=== PATIENT | male | born 1965 | race Two or more races ===

== ENCOUNTER 2021-08-25 18:41 | Inpatient (IN) | payer MEDICAID, OTHER ==
[~2021-08-25] VITALS: Ht 160 cm; Wt 83.6 kg
[2021-08-25 22:51] LABS: Basophils # (auto) 0.1 10 ^3/uL (0-0.2); Basophils % (auto) 0.5 % (0.0-2.0); Eosinophils # (auto) 0.1 10 ^3/uL (0-0.8); Eosinophils % (auto) 0.5 % (0.0-7.0); Hematocrit 50.1 % (41.0-53.0); Hemoglobin 16.9 g/dL (13.5-17.5); Lymphocytes # (auto) 2.1 10 ^3/uL (0.4-5.4); Lymphocytes % (auto) 15.6 % (10.0-50.0); Mean Corpuscular Hemoglobin 29.5 pg (28.0-32.0); Mean Corpuscular Hgb Conc. 33.7 g/dL (32.0-36.0); Mean Corpuscular Volume 87.7 fL (80.0-100.0); Monocytes % (auto) 7.6 % (0.0-12.0); Neutrophils # (auto) 10.1 10 ^3/uL (1.6-8.6); Neutrophils % (auto) 75.8 % (37.0-80.0); Nucleated Red Blood Cells % 0.3 %; Red Blood Cells 5.72 10^6/uL (4.5-5.90); Red Cell Distribution Width 13.8 % (11.8-14.3); White Blood Cell 13.3 10^3/uL (4.4-10.8)
[2021-08-25 23:02] LABS: Albumin 4.2 g/dL (3.4-5.0); Calcium 9.3 mg/dL (8.5-10.1); Potassium 4.2 mmol/L (3.5-5.1)
[2021-08-25 23:07] LABS: BUN/Creatinine Ratio 12.8; Bilirubin, Total 0.8 mg/dL (0.2-1.0); Total Protein 7.8 g/dL (6.4-8.2)
[2021-08-26] MEDS ORDERED: ONDANSETRON HCL 4 MG/2 ML VIAL IV ONE (03:15)
[2021-08-26] MEDS ORDERED: HYDROmorphone HCL 2 MG/ML VL IV ONE (03:15)
[2021-08-26] MEDS ORDERED: HYDROmorphone HCL 2 MG/ML VL ONE (03:21)
[2021-08-26] MEDS ORDERED: SODIUM CHLORIDE 0.9% 1,000 ML IV ONE (04:30)
[2021-08-26] MEDS ORDERED: ZOLPIDEM TARTRATE 5 MG TAB PO ONE (04:30)
[2021-08-26] MEDS ORDERED: MORPHINE SULFATE INJECTION 2 MG/ML SYRG IV PRN (04:45)
[2021-08-26] MEDS ORDERED: PANTOPRAZOLE 40 MG/10 ML VIAL INJ IV ONE (04:45)
[2021-08-26] MEDS ORDERED: NITROGLYCERIN 0.4 MG SL TAB SL PRN (04:45)
[2021-08-26] MEDS: cefTRIAXone 1GM/50ML D5W 50 ML IV SCH ×2 (05:34→10:00)
[2021-08-26] MEDS: HYDROmorphone HCL 2 MG/ML VL IV PRN ×3 (10:39→23:54)
[2021-08-26] MEDS: ONDANSETRON HCL 4 MG/2 ML VIAL IV PRN ×3 (10:40→23:55)
[2021-08-26] MEDS ORDERED: METO-289 PO (14:31)
[2021-08-26] MEDS ORDERED: ASPI1TAB20 PO (14:41)
[2021-08-26] MEDS ORDERED: METH-928 PO (14:41)
[2021-08-26] MEDS ORDERED: PRAV20TA3 PO (14:41)
[2021-08-26] MEDS: ENOXAPARIN SOD 40 MG/0.4 ML SYRINGE SC SCH (21:48)
[2021-08-26 22:00] VITALS: BP 122/87
[2021-08-26] MEDS ORDERED: BENA-30 PO (22:10)
[2021-08-26 23:05] VITALS: BP 122/87
[2021-08-27] MEDS: ZOLPIDEM TARTRATE 5 MG TAB PO PRN ×2 (02:10→22:05)
[2021-08-27 05:00] VITALS: BP 124/78
[2021-08-27 08:24] LABS: Basophils # (auto) 0.1 10 ^3/uL (0-0.2); Basophils % (auto) 0.6 % (0.0-2.0); Calcium 8.3 mg/dL (8.5-10.1); Eosinophils # (auto) 0.1 10 ^3/uL (0-0.8); Hematocrit 40.5 % (41.0-53.0); Hemoglobin 13.9 g/dL (13.5-17.5); Lymphocytes # (auto) 2.3 10 ^3/uL (0.4-5.4); Lymphocytes % (auto) 23.9 % (10.0-50.0); Mean Corpuscular Hemoglobin 29.9 pg (28.0-32.0); Mean Corpuscular Hgb Conc. 34.3 g/dL (32.0-36.0); Mean Corpuscular Volume 87.3 fL (80.0-100.0); Monocytes # (auto) 1.2 10 ^3/uL (0-1.3); Monocytes % (auto) 12.3 % (0.0-12.0); Neutrophils % (auto) 62.2 % (37.0-80.0); Nucleated Red Blood Cells % 0.2 %; Red Blood Cells 4.64 10^6/uL (4.5-5.90); Red Cell Distribution Width 13.6 % (11.8-14.3); White Blood Cell 9.6 10^3/uL (4.4-10.8)
[2021-08-27 08:30] LABS: Albumin 3.3 g/dL (3.4-5.0); BUN/Creatinine Ratio 15.2; Total Protein 6.6 g/dL (6.4-8.2)
[2021-08-27 08:58] VITALS: BP 139/82
[2021-08-27] MEDS: ASCORBIC ACID 1,000 MG TAB PO SCH (09:38)
[2021-08-27] MEDS: cefTRIAXone 1GM/50ML D5W 50 ML IV SCH (09:38)
[2021-08-27] MEDS: ZINC SULFATE 220mg CAP or TAB PO SCH (09:38)
[2021-08-27] MEDS: CHOLECALCIFEROL (VITD3) 2,000 UNIT CAP/TAB PO SCH (09:39)
[2021-08-27] MEDS: IVERMECTIN 3 MG TAB PO SCH (09:39)
[2021-08-27] MEDS: AZITHROMYCIN 500MG/ 250ML 250 ML IV SCH (09:40)
[2021-08-27] MEDS: ENOXAPARIN SOD 40 MG/0.4 ML SYRINGE SC SCH ×2 (09:49→22:05)
[2021-08-27 13:00] VITALS: BP 126/88
[2021-08-27] MEDS: HYDROmorphone HCL 2 MG/ML VL IV PRN (15:11)
[2021-08-27] MEDS: ONDANSETRON HCL 4 MG/2 ML VIAL IV PRN (15:45)
[2021-08-27 17:05] VITALS: BP 130/86
[2021-08-27 20:00] VITALS: BP 132/83
[2021-08-27 22:00] VITALS: BP 132/83
[2021-08-28] VITALS (7 sets, daily range): BP systolic 119–148; BP diastolic 83–99
[2021-08-28 07:56] LABS: Basophils # (auto) 0.1 10 ^3/uL (0-0.2); Basophils % (auto) 1.1 % (0.0-2.0); Eosinophils # (auto) 0.1 10 ^3/uL (0-0.8); Eosinophils % (auto) 1.2 % (0.0-7.0); Hematocrit 38.7 % (41.0-53.0); Hemoglobin 13.7 g/dL (13.5-17.5); Lymphocytes # (auto) 2.2 10 ^3/uL (0.4-5.4); Lymphocytes % (auto) 29.6 % (10.0-50.0); Mean Corpuscular Hemoglobin 30.3 pg (28.0-32.0); Mean Corpuscular Hgb Conc. 35.3 g/dL (32.0-36.0); Mean Corpuscular Volume 85.8 fL (80.0-100.0); Monocytes # (auto) 0.7 10 ^3/uL (0-1.3); Neutrophils # (auto) 4.3 10 ^3/uL (1.6-8.6); Neutrophils % (auto) 58.1 % (37.0-80.0); Nucleated Red Blood Cells % 0.2 %; Red Blood Cells 4.51 10^6/uL (4.5-5.90); Red Cell Distribution Width 13.5 % (11.8-14.3); White Blood Cell 7.3 10^3/uL (4.4-10.8)
[2021-08-28 09:08] LABS: BUN/Creatinine Ratio 14.7; Calcium 8.7 mg/dL (8.5-10.1)
[2021-08-28] MEDS: IVERMECTIN 3 MG TAB PO SCH (09:49)
[2021-08-28] MEDS: ZINC SULFATE 220mg CAP or TAB PO SCH (09:49)
[2021-08-28] MEDS: CHOLECALCIFEROL (VITD3) 2,000 UNIT CAP/TAB PO SCH (09:49)
[2021-08-28] MEDS: cefTRIAXone 1GM/50ML D5W 50 ML IV SCH (09:49)
[2021-08-28] MEDS: ASCORBIC ACID 1,000 MG TAB PO SCH (09:49)
[2021-08-28] MEDS: ENOXAPARIN SOD 40 MG/0.4 ML SYRINGE SC SCH (09:50)
[2021-08-28] MEDS: AZITHROMYCIN 500MG/ 250ML 250 ML IV SCH (11:10)
[2021-08-28] MEDS ORDERED: LORazepam 0.5 MG TAB PO PRN (14:45)
[2021-08-28] MEDS: LACTULOSE 20Gm/30ML SOLN PO SCH (21:55)
[2021-08-28] MEDS: ATORVASTATIN 20 MG TAB PO SCH (21:56)
[2021-08-28] MEDS ORDERED: ATORVASTATIN 20 MG TAB PO SCH (22:00)
[2021-08-29] VITALS (7 sets, daily range): BP systolic 117–131; BP diastolic 84–95
[2021-08-29] MEDS: ZOLPIDEM TARTRATE 5 MG TAB PO PRN ×2 (00:10→21:51)
[2021-08-29] MEDS: cefTRIAXone 1GM/50ML D5W 50 ML IV SCH (09:47)
[2021-08-29] MEDS: AZITHROMYCIN 500MG/ 250ML 250 ML IV SCH (09:48)
[2021-08-29] MEDS: LACTULOSE 20Gm/30ML SOLN PO SCH ×3 (09:51→21:50)
[2021-08-29] MEDS: ASCORBIC ACID 1,000 MG TAB PO SCH (09:51)
[2021-08-29] MEDS: BENAZEPRIL HCL 10 MG TAB PO SCH (09:51)
[2021-08-29] MEDS: IVERMECTIN 3 MG TAB PO SCH (09:51)
[2021-08-29] MEDS: METOPROLOL SUCCINATE XL 50 MG TAB PO SCH (09:51)
[2021-08-29] MEDS: CHOLECALCIFEROL (VITD3) 2,000 UNIT CAP/TAB PO SCH (09:52)
[2021-08-29] MEDS: ZINC SULFATE 220mg CAP or TAB PO SCH (09:52)
[2021-08-29] MEDS ORDERED: BENAZEPRIL HCL 10 MG TAB PO SCH (10:00)
[2021-08-29] MEDS ORDERED: METOPROLOL SUCCINATE XL 50 MG TAB PO SCH (10:00)
[2021-08-29 12:06] LABS: INR 0.99 (0.9-1.15); Partial Thromboplastin Time 27.9 sec (23.6-33.0)
[2021-08-29] MEDS ORDERED: MORPHINE SULFATE 4 MG/ML SYR/VIAL IV PRN (16:00)
[2021-08-29] MEDS ORDERED: MIDAZOLAM HCL 2MG/2ML 2ml VIAL (1mg/ml) IV PRN (16:00)
[2021-08-29] MEDS ORDERED: LABETALOL HCL 5 MG/ML 4ML SYRINGE IV PRN (16:00)
[2021-08-29] MEDS ORDERED: ONDANSETRON HCL 4 MG/2 ML VIAL IV PRN (16:00)
[2021-08-29] MEDS ORDERED: ePHEDrine SULFATE 50 MG/ML AMP IV PRN (16:00)
[2021-08-29] MEDS ORDERED: HYDROmorphone HCL 2 MG/ML VL IV PRN (16:00)
[2021-08-29] MEDS ORDERED: MIDAZOLAM HCL 2MG/2ML 2ml VIAL (1mg/ml) ONE ×2 (16:16→16:20)
[2021-08-29] MEDS ORDERED: MEPERIDINE HCL (50 MG/ML) 1 ML VIAL ONE (16:16)
[2021-08-29] MEDS ORDERED: fentaNYL CITRATE 100 MCG/2 ML VL ONE (16:16)
[2021-08-29] MEDS ORDERED: TETRACAINE 1% INJ 2 ML VIAL IJ ONE (16:17)
[2021-08-29] MEDS ORDERED: PROPOFOL 10 MG/ML 20 ML IV ONE (16:19)
[2021-08-29] MEDS ORDERED: DexAMETHasone SOD PHOS 10MG/1ML VIAL INJ ONE (16:19)
[2021-08-29] MEDS: ATORVASTATIN 20 MG TAB PO SCH (21:51)
[2021-08-30 05:00] VITALS: BP 125/86
[2021-08-30] MEDS: HYDROcodone-ACET 5/325MG TAB PO PRN ×2 (06:20→14:16)
[2021-08-30 08:16] LABS: Basophils # (auto) 0 10 ^3/uL (0-0.2); Eosinophils # (auto) 0 10 ^3/uL (0-0.8); Hematocrit 41.5 % (41.0-53.0); Hemoglobin 14.1 g/dL (13.5-17.5); Lymphocytes % (auto) 10.9 % (10.0-50.0); Mean Corpuscular Hemoglobin 29.4 pg (28.0-32.0); Mean Corpuscular Hgb Conc. 33.9 g/dL (32.0-36.0); Mean Corpuscular Volume 86.7 fL (80.0-100.0); Monocytes # (auto) 0.5 10 ^3/uL (0-1.3); Monocytes % (auto) 5.4 % (0.0-12.0); Neutrophils # (auto) 7.9 10 ^3/uL (1.6-8.6); Neutrophils % (auto) 83.7 % (37.0-80.0); Nucleated Red Blood Cells % 0.2 %; Red Blood Cells 4.78 10^6/uL (4.5-5.90); Red Cell Distribution Width 13.4 % (11.8-14.3); White Blood Cell 9.5 10^3/uL (4.4-10.8)
[2021-08-30 08:26] LABS: Potassium 4.3 mmol/L (3.5-5.1)
[2021-08-30 08:44] LABS: Albumin 3.3 g/dL (3.4-5.0); Bilirubin, Total 0.7 mg/dL (0.2-1.0); Calcium 8.9 mg/dL (8.5-10.1); Total Protein 6.9 g/dL (6.4-8.2)
[2021-08-30 09:00] VITALS: BP 129/75
[2021-08-30] MEDS: cefTRIAXone 1GM/50ML D5W 50 ML IV SCH (09:18)
[2021-08-30] MEDS: ASCORBIC ACID 1,000 MG TAB PO SCH (10:04)
[2021-08-30] MEDS: AZITHROMYCIN 500MG/ 250ML 250 ML IV SCH (10:04)
[2021-08-30] MEDS: ZINC SULFATE 220mg CAP or TAB PO SCH (10:07)
[2021-08-30] MEDS: IVERMECTIN 3 MG TAB PO SCH (10:08)
[2021-08-30] MEDS: CHOLECALCIFEROL (VITD3) 2,000 UNIT CAP/TAB PO SCH (10:09)
[2021-08-30] MEDS: LACTULOSE 20Gm/30ML SOLN PO SCH ×2 (10:09→21:47)
[2021-08-30] MEDS: METOPROLOL SUCCINATE XL 50 MG TAB PO SCH (10:09)
[2021-08-30] MEDS: BENAZEPRIL HCL 10 MG TAB PO SCH (10:10)
[2021-08-30 13:00] VITALS: BP 124/84
[2021-08-30 17:00] VITALS: BP 125/84
[2021-08-30] MEDS ORDERED: FLEET ENEMA(ADULT) 135 ML PR ONE (17:15)
[2021-08-30] MEDS: BISACODYL 10 MG RECT SUPP PR PRN (18:02)
[2021-08-30 20:00] VITALS: BP 129/74
[2021-08-30] MEDS: ATORVASTATIN 20 MG TAB PO SCH (21:47)
[2021-08-30 22:00] VITALS: BP 129/74
[2021-08-30] MEDS: ONDANSETRON HCL 4 MG/2 ML VIAL IV PRN (22:13)
[2021-08-30] MEDS: ZOLPIDEM TARTRATE 5 MG TAB PO PRN (23:45)
[2021-08-31 05:00] VITALS: BP 116/71
[2021-08-31 08:20] LABS: Basophils # (auto) 0 10 ^3/uL (0-0.2); Basophils % (auto) 0.4 % (0.0-2.0); Eosinophils # (auto) 0.1 10 ^3/uL (0-0.8); Eosinophils % (auto) 0.9 % (0.0-7.0); Hematocrit 41.4 % (41.0-53.0); Mean Corpuscular Hemoglobin 29.7 pg (28.0-32.0); Mean Corpuscular Hgb Conc. 33.7 g/dL (32.0-36.0); Mean Corpuscular Volume 88.1 fL (80.0-100.0); Monocytes # (auto) 0.8 10 ^3/uL (0-1.3); Monocytes % (auto) 6.5 % (0.0-12.0); Neutrophils # (auto) 7.8 10 ^3/uL (1.6-8.6); Neutrophils % (auto) 66.2 % (37.0-80.0); Nucleated Red Blood Cells % 0.1 %; Red Cell Distribution Width 13.5 % (11.8-14.3); White Blood Cell 11.7 10^3/uL (4.4-10.8)
[2021-08-31 08:40] LABS: Potassium 4.2 mmol/L (3.5-5.1)
[2021-08-31 09:00] VITALS: BP 128/82
[2021-08-31] MEDS: LACTULOSE 20Gm/30ML SOLN PO SCH (09:00)
[2021-08-31] MEDS: cefTRIAXone 1GM/50ML D5W 50 ML IV SCH (09:00)
[2021-08-31] MEDS: IVERMECTIN 3 MG TAB PO SCH (09:00)
[2021-08-31] MEDS: ZINC SULFATE 220mg CAP or TAB PO SCH (09:00)
[2021-08-31] MEDS: ASCORBIC ACID 1,000 MG TAB PO SCH (09:01)
[2021-08-31] MEDS: CHOLECALCIFEROL (VITD3) 2,000 UNIT CAP/TAB PO SCH (09:01)
[2021-08-31] MEDS: BENAZEPRIL HCL 10 MG TAB PO SCH (09:01)
[2021-08-31] MEDS: AZITHROMYCIN 500MG/ 250ML 250 ML IV SCH (09:01)
[2021-08-31] MEDS: METOPROLOL SUCCINATE XL 50 MG TAB PO SCH (09:02)
[2021-08-31] MEDS: BISACODYL 10 MG RECT SUPP PR PRN (09:07)
[2021-08-31 09:10] LABS: BUN/Creatinine Ratio 16.8; Calcium 8.7 mg/dL (8.5-10.1)
[2021-08-31 13:00] VITALS: BP 124/70
[2021-08-31] MEDS ORDERED: ASCO10003 PO (13:38)
[2021-08-31] MEDS ORDERED: CHOL1CAP47 PO (13:38)
[2021-08-31 14:23] VITALS: BP 124/40
== END 2021-08-31 16:12 | disposition home or self-care (01) | DRG 713 ==
LOC: ER 18:42 → WEST WING 08-26 00:50 → ER 08-26 00:50 → OVERFLOW 08-26 04:37 → WEST WING 08-26 21:25
PROVIDERS: ADMIT Nurse Practitioner Family; ATTEND Internal Medicine Pulmonary Disease
PROC: 0VB08ZZ Excision of Prostate, Via Natural or Artificial Opening Endoscopic (ICD-10-PCS; 2021-08-29)
PROC: 0TCB8ZZ Extirpation of Matter from Bladder, Via Natural or Artificial Opening Endoscopic (ICD-10-PCS; 2021-08-29)
PROC: 0T5B8ZZ Destruction of Bladder, Via Natural or Artificial Opening Endoscopic (ICD-10-PCS; principal; 2021-08-29 16:04)
DX: N40.1 Benign prostatic hyperplasia with lower urinary tract symptoms (principal); U07.1 COVID-19; N13.8 Other obstructive and reflux uropathy; D62 Acute posthemorrhagic anemia; R31.0 Gross hematuria; F12.90 Cannabis use, unspecified, uncomplicated; F41.9 Anxiety disorder, unspecified; R33.8 Other retention of urine; I10 Essential (primary) hypertension; Z79.01 Long term (current) use of anticoagulants; Z79.82 Long term (current) use of aspirin; Z79.899 Other long term (current) drug therapy
CPT/HCPCS: 36415; 71045; 74176; 76705; 80048; 80053; 82728; 83615; 83735; 85025; 85610; 85730; 86141; 86850; 86900; 86901; 87426; 93005; 94760; C9113; G0378; J0696; J1100; J2250; J2405; J2704

== ENCOUNTER 2025-01-10 09:14 | Inpatient (IN) | payer OTHER ==
[~2025-01-10] VITALS: Ht 165.1 cm; Wt 92.1 kg
[~2025-01-10 09:14] MED LIST: ASCO10003 PO; ASPI1TAB20 PO; BENA-30 PO; CHOL1CAP47 PO; METH-928 PO; METO-289 PO; PRAV20TA3 PO
--- NOTE | 2025-01-10 09:40 | ED.PDOC ---
GI ASSESSMENT HPI Comments 59 year old male presents to the ED with a chief complaint of abdominal pain onset 4 days. Patient states he has been experiencing diffused abdominal pain radiating to bilateral flank for the past 4 days. Patient also states he noticed decrease in urine output, has been experiencing nausea. PMHx UTIs, HTN. Denies vomiting, diarrhea, constipation, chest pain shortness of breath, hematuria, hematemesis, fever, chills. No other symptoms or modifying factors present at this time. Chief Complaint: Abdominal Pain Time Seen by MD: 09:20 Primary Care Provider: WANG Borges Notes: Medications, Allergies Allergies: Coded Allergies: NO KNOWN ALLERGIES (Unverified , 08/25/21) Home Meds Active Scripts Cholecalciferol (Vitamin D3 Super Strength) 2,000 Unit Cap, 4000 UNIT PO DAILY for 30 Days, #30 CAP Prov:VICKIE AVERY MD 08/31/21 Ascorbic Acid (Gnp Vitamin C W/Cynthia Hips) 1,000 Mg Tab, 1000 MG PO DAILY for 30 Days, #30 TAB Prov:VICKIE AVERY MD 08/31/21 Reported Medications Benazepril HCl (Benazepril Hydrochloride) 20 Mg Tab, 20 MG PO BID, TAB 08/26/21 Methenamine Hippurate (Methenamine Hippurate) 1 Gm Tab, 1 GM PO BID, TAB 08/26/21 Aspirin (Aspir-81) 81 Mg Tab, 1 TAB PO DAILY, #30 TAB 5 Refills 08/26/21 Pravastatin Sodium (PRAVACHOL TABLET) 20 Mg Tb, 1 TAB PO QPM, #90 TAB 1 Refill 08/26/21 Metoprolol Succinate (Metoprolol Succinate Er) 50 Mg Tab, 50 MG PO BID, TAB 08/26/21 Information Source: Patient Mode of Arrival: Ambulatory Timing: Days Duration: Since onset Prehospital treatment: None Quality: Sharp Vomitus: None Severity: Moderate Recent: None Recent Hx of: None Pain Location: Diffuse Associated sign and symptoms: Nausea, Abdominal Pain Past Medical History PAST MEDICAL HISTORY: HTN, UTI'S Surgical History: Appendectomy Family History Family History: Reviewed,noncontributory to illness Social History Smoker: Cigar Alcohol: Denies ETOH Use Drugs: Denies Drug Use Lives In: Home Constitutional: denies: chills, diaphoresis, fatigue, fever, malaise, sweats, weakness, others EENTM: denies: blurred vision, double vision, ear bleeding, ear discharge, ear drainage, ear pain, ear ringing, eye pain, eye redness, hearing loss, mouth pain, mouth swelling, nasal discharge, nose bleeding, nose congestion, nose pain, photophobia, tearing, throat pain, throat swelling, voice changes, others Respiratory: denies: cough, hemoptysis, orthopnea, SOB at rest, shortness of breath, SOB with excertion, stridor, wheezing, others Cardiovascular: denies: chest pain, dizzy spells, diaphoresis, Dyspnea on exertion, edema, irregular heart beat, left arm pain, lightheadedness, palpitations, PND, syncope, others Gastrointestinal: reports: abdominal pain, nausea; denies: abdomen distended, blood streaked bowels, constipated, diarrhea, dysphagia, difficulty swallowing, hematemesis, melena, poor appetite, poor fluid intake, rectal bleeding, rectal pain, vomiting, others Genitourinary: reports: flank pain, others (decreased urine output); denies: burning, dysuria, frequency, hematuria, incontinence, penile discharge, penile sore, pain, testicle pain, testicle swelling, urgency Neurological: denies: dizziness, fainting, headache, left sided numbness, left sided weakness, numbness, paresthesia, pre-existing deficit, right sided numbness, right sided weakness, seizure, speech problems, tingling, tremors, weakness, others Musculoskeletal: denies: back pain, gout, joint pain, joint swelling, muscle pain, muscle stiffness, neck pain, others Integumetry: denies: bruises, change in color, change in hair/nails, dryness, laceration, lesions, lumps, rash, wounds, others Allergic/Immunocompromised: denies: Difficulty Healing, Frequent Infections, Hives, Itching, others Hematologic/Lymphatic: denies: anemia, blood clots, easy bleeding, easy bruising, swollen glands, others Endocrine: denies: excessive hunger, excessive sweating, excessive thirst, excessive urination, flushing, intolerance to cold, intolerance to heat, unexplained weight gain, unexplained weight loss, others Psychiatric: denies: anxiety, bipolar disorder, depression, hopeless, panic disorder, schizophrenia, sleepless, suicidal, others All Other Systems: Reviewed and Negative Physical Exam General Appearance: Moderate Distress, Normal HEENT: Normal ENT Inspection, Pharynx Normal, TMs Normal Neck: Full Range of Motion, Non-Tender, Normal, Normal Inspection Respiratory: Chest Non-Tender, Lungs Clear, No Accessory Muscle Use, No Respiratory Distress, Normal Breath Sounds Cardiovascular: No Edema, No JVD, No Murmur, No Gallop, Normal Peripheral Pulses, Regular Rate/Rhythm Breast Exam: Deferred Gastrointestinal: No Organomegaly, Non Tender, No Pulsatile Mass, Normal Bowel Sounds, Soft Genitalia: Deferred Pelvic: Deferred Rectal: Deferred Extremities: No calf tenderness, Normal capillary refill, Normal inspection, Normal range of motion, Non-tender, No pedal edema Musculoskeletal : Apperance: Normal Neurologic: Alert, health information manager II-XII nml as Tested, No Motor Deficits, Normal Affect, Normal Mood, No Sensory Deficits Cerebellar Function: Normal Reflexes: Normal Skin: Dry, Normal Color, Warm Peripheral Pulses: 3+ Radial (R), 3+ Radial (L) Lymphatic: No Adenopathy Was a procedure done? Was a procedure done?: No GI differential Dx Differential Diagnosis: Constipation, Diverticular disease, Esophagitis, Gastritis/PUD, Gastroenteritis X-Ray, Labs, Meds, VS Vital Signs Date Time Temp Pulse Resp B/P (MAP) Pulse Ox O2 Delivery O2 Flow Rate FiO2 01/10/25 12:39 98.6 86 18 98 98.6 01/10/25 10:12 80 16 95 Room Air 01/10/25 10:12 98.9 80 17 134/80 (98) 95 98.9 01/10/25 09:24 98.3 81 20 144/91 (108) 97 98.3 Lab Test 01/10/25 09:46 01/10/25 09:28 Range/Units White Blood Count 8.8 4.4-10.8 10^3/uL Red Blood Count 5.45 4.5-5.90 10^6/uL Hemoglobin 17.2 13.5-17.5 g/dL Hematocrit 49.4 41.0-53.0 % Mean Corpuscular Volume 90.6 80.0-100.0 fL Mean Corpuscular Hemoglobin 31.6 28.0-32.0 pg Mean Corpuscular Hemoglobin Concent 34.8 32.0-36.0 g/dL Red Cell Distribution Width 13.6 11.8-14.3 % Platelet Count 236 140-450 10^3/uL Mean Platelet Volume 8.3 6.9-10.8 fL Neutrophils (%) (Auto) 64.2 37.0-80.0 % Lymphocytes (%) (Auto) 23.9 10.0-50.0 % Monocytes (%) (Auto) 8.5 0.0-12.0 % Eosinophils (%) (Auto) 2.2 0.0-7.0 % Basophils (%) (Auto) 1.2 0.0-2.0 % Neutrophils # (Auto) 5.7 1.6-8.6 10 ^3/uL Lymphocytes # (Auto) 2.1 0.4-5.4 10 ^3/uL Monocytes # (Auto) 0.7 0-1.3 10 ^3/uL Eosinophils # (Auto) 0.2 0-0.8 10 ^3/uL Basophils # (Auto) 0.1 0-0.2 10 ^3/uL Nucleated Red Blood Cells 0.1 % Sodium Level 139 136-145 mmol/L Potassium Level 4.5 3.5-5.1 mmol/L Chloride Level 106 98-107 mmol/L Carbon Dioxide Level 23 20-31 mmol/L Anion Gap 10 5-15 Blood Urea Nitrogen 14 9-23 mg/dL Creatinine 1.17 0.700-1.30 mg/dL Glomerular Filtration Rate Calc 72 >90 mL/min BUN/Creatinine Ratio 12.0 10.0-20.0 Serum Glucose 120 H 74-106 mg/dL Calcium Level 10.7 H 8.7-10.4 mg/dL Urine Color Dark-yellow Yellow Urine Clarity Clear Clear Urine pH 6.0 5.0-9.0 Urine Specific [place] 1.010 1.001-1.035 Urine Protein Negative Negative Urine Ketones Negative Negative Urine Blood Negative Negative /uL Urine Nitrite 1+ H Negative Urine Bilirubin 1+ Negative Urine Urobilinogen 2 H Negative mg/dL Urine Leukocyte Esterase Negative Negative /uL Urine RBC <1 0 - 3 /hpf Urine Microscopic WBC < 1 0-3 /HPF Urine Squamous Epithelial Cells Few <5 /hpf Urine Bacteria None seen None Seen /hpf Urine Glucose Normal Normal mg/dL Patient alert. Complaining of abdominal discomfort. Vitals stable. Answering questions. Abdomen is soft. No sign of distress. Reviewed his history. Explained to the patient. Continue monitoring. Urinalysis shows UTI. Was given Rocephin. Establish intravenous access. Was given fluids. Time of 1ST Reevaluation: 09:50 Reevaluation 1ST: Unchanged Patient Education/Counseling: Diagnosis, Treatment, Prognosis Family Education/Counseling: No Family Present Departure 1 Departure Time of Disposition: 09:48 Impression: Primary Impression: Non-specific colitis Additional Impressions: HTN (hypertension) Qualified Codes: I10 - Essential (primary) hypertension Sepsis due to urinary tract infection Disposition: ADMITTED INPATIENT Admit to: Med Surg Condition: Guarded Critical Care Note Critical Care Time?: No Stability Stability form required: No Heart Score Heart Score: Heart Score Response (Comments) Value History N/A 0 EKG N/A 0 Age N/A 0 Risk Factors N/A 0 Troponin N/A 0 Total 0 I personally scribed for BURKE PARISH MD ([email or web address]) on 01/10/25 at 09:40. Electronically submitted by Kristin Cardenas ([email or web address]). BURKE PARISH MD Jan 10, 2025 09:40
[2025-01-10 09:53] LABS: Urine Bacteria None Seen /hpf (None Seen)
[2025-01-10 09:59] LABS: Basophils # (auto) 0.1 10 ^3/uL (0-0.2); Basophils % (auto) 1.2 % (0.0-2.0); Eosinophils # (auto) 0.2 10 ^3/uL (0-0.8); Eosinophils % (auto) 2.2 % (0.0-7.0); Hematocrit 49.4 % (41.0-53.0); Hemoglobin 17.2 g/dL (13.5-17.5); Lymphocytes # (auto) 2.1 10 ^3/uL (0.4-5.4); Lymphocytes % (auto) 23.9 % (10.0-50.0); Mean Corpuscular Hemoglobin 31.6 pg (28.0-32.0); Mean Corpuscular Hgb Conc. 34.8 g/dL (32.0-36.0); Mean Corpuscular Volume 90.6 fL (80.0-100.0); Monocytes # (auto) 0.7 10 ^3/uL (0-1.3); Monocytes % (auto) 8.5 % (0.0-12.0); Neutrophils # (auto) 5.7 10 ^3/uL (1.6-8.6); Neutrophils % (auto) 64.2 % (37.0-80.0); Nucleated Red Blood Cells % 0.1 %; Platelet Count (auto) 236 10^3/uL (140-450); Red Blood Cells 5.45 10^6/uL (4.5-5.90); Red Cell Distribution Width 13.6 % (11.8-14.3); White Blood Cell 8.8 10^3/uL (4.4-10.8)
[2025-01-10 10:03] LABS: Urine Blood Negative /uL (Negative); Urine Clarity Clear (Clear); Urine Color Dark-Yellow (Yellow); Urine Protein, UAD Negative (Negative); Urine Squamous Epithelial Cell FEW /hpf (<5); Urine Urobilinogen 2 mg/dL (Negative); Urine WBC < 1 /HPF (0-3)
[2025-01-10 10:07] LABS: Chloride 106 mmol/L (98-107); Potassium 4.5 mmol/L (3.5-5.1); Sodium 139 mmol/L (136-145)
[2025-01-10 10:08] LABS: Anion Gap 10 (5-15); Carbon Dioxide 23 mmol/L (20-31)
[2025-01-10 10:14] LABS: Blood Urea Nitrogen 14 mg/dL (9-23); Calcium 10.7 mg/dL (8.7-10.4); Glucose 120 mg/dL (74-106)
[2025-01-10] MEDS: SODIUM CHLORIDE 0.9% 1,000 ML IV ONE ×2 (13:00→15:21)
[2025-01-10] MEDS: cefTRIAXone 1GM/50ML D5W 50 ML IV ONE ×2 (13:00→15:22)
--- NOTE | 2025-01-10 13:44 | DVH ---
CT ABDOMEN AND PELVIS WITHOUT CONTRAST CLINICAL HISTORY: distended TECHNIQUE: Multiple contiguous axial images of the abdomen and pelvis without intravenous contrast. T he images were reformatted degenerate coronal and sagittal reconstructions. All CT scans at this medical facility are performed using dose modulation techniques as appropriate t o a performed exam including the following:Automated exposure control was utilized; adjustment of the MA and/or KV according to patient size; and use of iterative reconstruction technique. Radiation Dose Information: CT Dose: CTDI volume is 16.52 mGy. Dose-length product is 919.54 mGy*cm Comparison: CT ABD PELVIS WO CONTRAST on DOS: 08/26/21 FINDINGS: Evaluation of the abdomen and pelvis is limited without intravenous contrast. The liver is prominent in size with diffuse fatty infiltration. The gallbladder, pancreas, kidneys , adrenal glands, and spleen appear within normal limits. There is no gross evidence of abdominal lymphadenopathy. There is no free fluid or free air. The stomach grossly appears unremarkable. The small and large bowel loops demonstrate normal caliber and distribution. The appendix is not seen in the right lower quadrant abdomen. There are scattered diverticula in the distal colon without evidence of acute diverticulitis. The abdominal aorta and IVC appear within normal limits. The bladder appears unremarkable for the degree of distention. Pelvic organ appears within normal russell its. There is no gross evidence of a pelvic mass. There is no free fluid collection. Lung bases are clear. There is no acute osseous abnormality. IMPRESSION: 1. There is no acute process in the abdomen and pelvis. 2. Hepatomegaly with diffuse hepatic steatosis. 3. Distal colon diverticulosis. HS:Y
[2025-01-10] MEDS ORDERED: ACETAMINOPHEN 325 MG TAB PO PRN (14:00)
[2025-01-10] MEDS ORDERED: DOCUSATE SOD 100 MG CAP PO PRN (14:00)
[2025-01-10] MEDS: SODIUM CHLORIDE 0.9% 1,000 ML IV SCH (14:00)
[2025-01-10] MEDS ORDERED: ONDANSETRON HCL 4 MG/2 ML VIAL IV PRN (14:00)
--- NOTE | 2025-01-10 14:56 | DVHHP2 ---
History of Present Illness Reason for Visit: Acute abdominal pain History of Present Illness The patient is a 59-year-old male with past medical history of UTIs, hypertension, and appendicitis who presented to [facility] ED with complaint of abdominal pain for the past 4 days. Patient reports he has been experiencing diffuse abdominal pain, radiating to bilateral flank, decreased urine output, nausea, getting worse that prompted this visit. Patient was seen and evaluated in the ED, laboratory data shows WBC 8.8, platelets 236, sodium 139, potassium 4.5, BUN 14, creatinine 1.17, glucose 120, calcium 10.7, urinalysis positive for urinary tract infection, blood pressure 134/80, heart rate 86, temperature 98.6 F, O2 saturation 98% on room air. Abdomen/pelvis CT revealing hepatomegaly with diffuse hepatic steatosis, distal colon diverticulosis, no acute process in the abdomen and pelvis. Patient was started on IV antibiotic regimen Rocephin, please see medication orders section in the computer. On my assessment, patient denied chest pain, no headache, no dizziness, no shortness of breath, no nausea, no vomiting, no fever, no chills. Patient was admitted for further evaluation and medical management. Past Medical History Appendicitis, HTN, UTI'S Past Surgical History Appendectomy Family History Reviewed, noncontributory to the management of this case. Past Social History The patient lives at home, denies smoking, alcohol or illicit drugs abuse. Review of Systems Constitutional: No: Fever, Chills, Sweats, Weakness, Malaise, Other Eyes: No: Pain, Vision change, Conjunctivae inflammation, Eyelid inflammation, Other, Redness ENT: No: Ear pain, Ear discharge, Nose pain, Nose discharge, Nose congestion, Mouth pain, Mouth swelling, Throat pain, Throat swelling, Other Respiratory: No: Cough, Dry, Shortness of breath, SOB with excertion, Wheezing, Hemoptysis, Pleuritic Pain, Sputum, Wheezing, Other Cardiovascular: No: Chest Pain, Palpitations, Orthopnea, Paroxysmal Noc. Dyspnea, Edema, Lt Headedness, Other Gastrointestinal: Nausea, Abdominal Pain; No: Vomiting, Diarrhea, Constipation, Melena, Hematochezia, Other Genitourinary: No Dysuria, No Frequency, No Incontinence, No Hematuria, No Retention; Other (Bilateral flank pain, decreased urine output.) Musculoskeletal: No: other, neck pain, shoulder pain, arm pain, back pain, hand pain, leg pain, foot pain Skin: No: Rash, Lesions, Jaundice, Bruising, Other Neurological: No: Weakness, Numbness, Incoordination, Change in speech, Confusion, Seizures, Other Allergies: Coded Allergies: NO KNOWN ALLERGIES (Unverified , 08/25/21) Medications Current Medications Medications Dose Ordered Sig/Ramy Route Start Time Stop Time Status Last Admin Dose Admin Aspirin 81 mg DAILY PO 01/11/25 10:00 Metoprolol Tartrate 25 mg BID PO 01/10/25 22:00 Hydralazine HCl 10 mg Q6HP PRN IV 01/10/25 14:00 Benazepril HCl 20 mg DAILY PO 01/11/25 10:00 Ceftriaxone Sodium 50 ml @ 100 mls/hr DAILY@09 IV 01/11/25 09:00 Atorvastatin Calcium 20 mg HS PO 01/10/25 22:00 Sodium Chloride 1,000 ml @ 60 mls/hr [id number] IV 01/10/25 14:00 Acetaminophen/ Hydrocodone Bitart 1 tab Q4HP PRN PO 01/10/25 14:00 Ondansetron HCl 4 mg Q4HP PRN IV 01/10/25 14:00 Docusate Sodium 100 mg BIDPRN PRN PO 01/10/25 14:00 Acetaminophen 650 mg Q6HP PRN PO 01/10/25 14:00 Exam Vital Signs Vital Signs Date Time Temp Pulse Resp B/P (MAP) Pulse Ox O2 Delivery O2 Flow Rate FiO2 01/10/25 14:42 99.0 87 18 146/90 (108) 95 99.0 01/10/25 10:12 Room Air General Appearance: Alert, Oriented X3, Cooperative, No acute distress HEENT: Atraumatic, PERRLA, EOMI, Mucous membr. moist/pink Respiratory: Clear to auscultation, Normal air movement Cardiovascular: Regular rate, Normal S1, Normal S2, No murmurs Abdominal: Normal bowel sounds, Soft, No hepatospenomegaly, No masses, Other (Reports tenderness) Extremities: No clubbing, No cyanosis, No edema, Normal pulses, No tenderness/swelling Skin: No rashes, No breakdown, No significant lesion Neuro: Normal gait, Normal speech, Strength at 5/5 X4 ext, Normal tone, Sensation intact, Cranial nerves 3-12 NL, Reflexes 2+ Psych/Mental Status: Mental status NL, Mood NL Labs/Xrays Labs Test 01/10/25 09:46 01/10/25 09:28 Range/Units White Blood Count 8.8 4.4-10.8 10^3/uL Red Blood Count 5.45 4.5-5.90 10^6/uL Hemoglobin 17.2 13.5-17.5 g/dL Hematocrit 49.4 41.0-53.0 % Mean Corpuscular Volume 90.6 80.0-100.0 fL Mean Corpuscular Hemoglobin 31.6 28.0-32.0 pg Mean Corpuscular Hemoglobin Concent 34.8 32.0-36.0 g/dL Red Cell Distribution Width 13.6 11.8-14.3 % Platelet Count 236 140-450 10^3/uL Mean Platelet Volume 8.3 6.9-10.8 fL Neutrophils (%) (Auto) 64.2 37.0-80.0 % Lymphocytes (%) (Auto) 23.9 10.0-50.0 % Monocytes (%) (Auto) 8.5 0.0-12.0 % Eosinophils (%) (Auto) 2.2 0.0-7.0 % Basophils (%) (Auto) 1.2 0.0-2.0 % Neutrophils # (Auto) 5.7 1.6-8.6 10 ^3/uL Lymphocytes # (Auto) 2.1 0.4-5.4 10 ^3/uL Monocytes # (Auto) 0.7 0-1.3 10 ^3/uL Eosinophils # (Auto) 0.2 0-0.8 10 ^3/uL Basophils # (Auto) 0.1 0-0.2 10 ^3/uL Nucleated Red Blood Cells 0.1 % Sodium Level 139 136-145 mmol/L Potassium Level 4.5 3.5-5.1 mmol/L Chloride Level 106 98-107 mmol/L Carbon Dioxide Level 23 20-31 mmol/L Anion Gap 10 5-15 Blood Urea Nitrogen 14 9-23 mg/dL Creatinine 1.17 0.700-1.30 mg/dL Glomerular Filtration Rate Calc 72 >90 mL/min BUN/Creatinine Ratio 12.0 10.0-20.0 Serum Glucose 120 H 74-106 mg/dL Calcium Level 10.7 H 8.7-10.4 mg/dL Urine Color Dark-yellow Yellow Urine Clarity Clear Clear Urine pH 6.0 5.0-9.0 Urine Specific [place] 1.010 1.001-1.035 Urine Protein Negative Negative Urine Ketones Negative Negative Urine Blood Negative Negative /uL Urine Nitrite 1+ H Negative Urine Bilirubin 1+ Negative Urine Urobilinogen 2 H Negative mg/dL Urine Leukocyte Esterase Negative Negative /uL Urine RBC <1 0 - 3 /hpf Urine Microscopic WBC < 1 0-3 /HPF Urine Squamous Epithelial Cells Few <5 /hpf Urine Bacteria None seen None Seen /hpf Urine Glucose Normal Normal mg/dL PATIENT: ANDREY SIERRA ACCT: [id number] UNIT: [id number] : 1965 LOC: ER ROOM / BED: / AGE / SEX: 59 / M ADM STATUS: REG ER SERVICE [id number] ORDERING PHYSICIAN: BURKE APRISH MD PROCEDURE(s): ABPL - CT AB PEL WO CON-NO ORAL OR IV REASON: distended ORDER NUMBER(s): [id number], ACCESSION NUMBER(s): [id number] CT ABDOMEN AND PELVIS WITHOUT CONTRAST CLINICAL HISTORY: distended TECHNIQUE: Multiple contiguous axial images of the abdomen and pelvis without intravenous contrast. The images were reformatted degenerate coronal and sagittal reconstructions. All CT scans at this medical facility are performed using dose modulation techniques as appropriate to a performed exam including the following:Automated exposure control was utilized; adjustment of the MA and/or KV according to patient size; and use of iterative reconstruction technique. Radiation Dose Information: CT Dose: CTDI volume is 16.52 mGy. Dose-length product is 919.54 mGy*cm Comparison: CT ABD PELVIS WO CONTRAST on DOS: 08/26/21 FINDINGS: Evaluation of the abdomen and pelvis is limited without intravenous contrast. The liver is prominent in size with diffuse fatty infiltration. The gallbladder, pancreas, kidneys, adrenal glands, and spleen appear within normal limits. There is no gross evidence of abdominal lymphadenopathy. There is no free fluid or free air. The stomach grossly appears unremarkable. The small and large bowel loops demonstrate normal caliber and distribution. The appendix is not seen in the right lower quadrant abdomen. There are scattered diverticula in the distal colon without evidence of acute diverticulitis. The abdominal aorta and IVC appear within normal limits. The bladder appears unremarkable for the degree of distention. Pelvic organ appears within normal limits. There is no gross evidence of a pelvic mass. There is no free fluid collection. Lung bases are clear. There is no acute osseous abnormality. IMPRESSION: 1. There is no acute process in the abdomen and pelvis. 2. Hepatomegaly with diffuse hepatic steatosis. 3. Distal colon diverticulosis. Assessment/Plan Assessment/Plan Non-specific colitis Essential (primary) hypertension Urinary tract infection Acute abdominal pain Plan 1. Admit to med surge unit 2. Breathing treatment 3. Pain control management 4. IV antibiotic management 5. Management of fluids and electrolytes 6. Consultation for hospitalist 7. Diagnostic test abdomen/pelvis CT 8. DVT prophylaxis-on SCDs 9. Repeat labs CBC, CMP in a.m. 10. Home medication reviewed and reconciled 11. Continue with current medical management 12. Treatment plan discussed with patient and RN. Patient verbalized understanding. Plan discussed with: Patient, Other (RN) My Orders Orders - DANIELITO PINEDA DNP Procedure Category Date Status Time Aspirin Tablet PHA 01/11/25 In Process 10:00 Metoprolol Tartrate PHA 01/10/25 In Process Tablet (Lopressor Ta 22:00 Hydralazine Injection PHA 01/10/25 In Process (Apresoline Inject 14:00 Urine Bacterial ROBYN 01/10/25 In Process Culture 13:49 Benazepril Hcl Tablet PHA 01/11/25 In Process (Lotensin Tablet) 10:00 Ceftriaxone 1gm/50ml PHA 01/11/25 In Process D5w (Rocephin) 09:00 Atorvastatin (Lipitor) PHA 01/10/25 In Process 22:00 Allergies DEYA 01/10/25 In Process 13:49 Code Status CODE 01/10/25 Transmitted 13:49 Sodium Chloride 0.9% PHA 01/10/25 In Process 14:00 Oxygen Per Hour RT 01/10/25 Transmitted 13:49 Hydrocodone-Acet PHA 01/10/25 In Process 5/325mg Tab ([place] 14:00 Ondansetron Hcl PHA 01/10/25 In Process (Zofran) 14:00 Docusate Sodium PHA 01/10/25 In Process Capsule (Colace 14:00 Complete Blood Count LAB 01/11/25 Verified 04:00 Comprehensive LAB 01/11/25 Verified Metabolic Panel 04:00 Condition: Serious DEYA 01/10/25 In Process 13:49 Acetaminophen Tablet PHA 01/10/25 In Process (Tylenol Tablet) 14:00 Bedrest With Bathroom DEYA 01/10/25 In Process Privileg 13:49 Sequential DEYA 01/10/25 In Process Compression Device Admit ADMIT 01/10/25 Verified 14:54 Full Liq Diet DIET 01/10/25 Verified Dinner Nitroglycerin PHA 01/10/25 Verified Sublingual (Ntrostat 15:00 Problem List: (1) Non-specific colitis (2) Essential (primary) hypertension (3) Urinary tract infection (4) Acute abdominal pain Date of Service: Jan 10, 2025 Billing Provider: DANIELITO PINEDA DNP Common Visit Codes: 21798-WOSUINB INP/OBS CARE (MOD) DANIELITO PINEDA DNP Jan 10, 2025 14:56
[2025-01-10] MEDS ORDERED: MORPHINE SULFATE INJ 2 MG/ml SYRG IV PRN (15:00)
[2025-01-10] MEDS ORDERED: NITROGLYCERIN 0.4 MG SL TAB SL PRN (15:00)
[2025-01-10] MEDS: HYDROcodone-ACET 5/325MG TAB PO PRN (15:22)
[2025-01-10 16:28] VITALS: PULSE 74; RESP 18; O2SAT 97
[2025-01-10 17:30] VITALS: BP 162/96; PULSE 80; RESP 18; TEMP 98.4; O2SAT 94
[2025-01-10] MEDS ORDERED: FIN5T PO (18:29)
[2025-01-10] MEDS ORDERED: SIMV20TA20 PO (18:29)
[2025-01-10] MEDS ORDERED: METO-158 PO (18:29)
[2025-01-10] MEDS ORDERED: CIPR-214 PO (18:29)
[2025-01-10] MEDS ORDERED: CLIN1GEL24 TOP (18:29)
[2025-01-10] MEDS ORDERED: TAMS0.4C39 PO (18:29)
[2025-01-10] MEDS ORDERED: DICL500C76 PO (18:29)
[2025-01-10] MEDS ORDERED: PANT40T PO (18:29)
[2025-01-10] MEDS ORDERED: BENA-36 PO (18:29)
[2025-01-10 21:00] VITALS: BP 154/95; PULSE 82; RESP 18; TEMP 98.5; O2SAT 95
[2025-01-10] MEDS: ATORVASTATIN 20 MG TAB PO SCH (21:51)
[2025-01-10] MEDS: METOPROLOL TARTRATE 25 MG TAB PO SCH (21:52)
[2025-01-10] MEDS ORDERED: ZOLP10TA PO (21:56)
[2025-01-10] MEDS: TEMAZEPAM 15 MG CAP PO ONE (22:56)
[2025-01-11 01:00] VITALS: BP 132/81; PULSE 66; RESP 18; TEMP 98.1; O2SAT 95
[2025-01-11 05:20] VITALS: BP 172/102; PULSE 74; RESP 16; TEMP 98; O2SAT 96
[2025-01-11 05:37] VITALS: BP 161/95
[2025-01-11 08:03] LABS: Basophils # (auto) 0.1 10 ^3/uL (0-0.2); Basophils % (auto) 0.8 % (0.0-2.0); Eosinophils # (auto) 0.2 10 ^3/uL (0-0.8); Eosinophils % (auto) 2.6 % (0.0-7.0); Hematocrit 45.8 % (41.0-53.0); Hemoglobin 15.5 g/dL (13.5-17.5); Lymphocytes # (auto) 2.5 10 ^3/uL (0.4-5.4); Lymphocytes % (auto) 28.1 % (10.0-50.0); Mean Corpuscular Hemoglobin 30.8 pg (28.0-32.0); Mean Corpuscular Hgb Conc. 33.7 g/dL (32.0-36.0); Mean Corpuscular Volume 91.2 fL (80.0-100.0); Monocytes # (auto) 0.9 10 ^3/uL (0-1.3); Monocytes % (auto) 9.8 % (0.0-12.0); Neutrophils # (auto) 5.1 10 ^3/uL (1.6-8.6); Neutrophils % (auto) 58.7 % (37.0-80.0); Nucleated Red Blood Cells % 0.1 %; Platelet Count (auto) 212 10^3/uL (140-450); Red Blood Cells 5.03 10^6/uL (4.5-5.90); Red Cell Distribution Width 13.9 % (11.8-14.3); White Blood Cell 8.7 10^3/uL (4.4-10.8)
[2025-01-11 08:06] LABS: Albumin 4.6 g/dL (3.2-4.8); Alkaline Phosphatase 73 U/L (46-116); Anion Gap 8 (5-15); BUN/Creatinine Ratio 12.7 (10.0-20.0); Blood Urea Nitrogen 14 mg/dL (9-23); Calcium 10.1 mg/dL (8.7-10.4); Carbon Dioxide 27 mmol/L (20-31); Chloride 106 mmol/L (98-107); Potassium 4.5 mmol/L (3.5-5.1); Sodium 141 mmol/L (136-145); Total Protein 7.1 g/dL (5.7-8.2)
[2025-01-11 08:07] LABS: Alanine Aminotransferase 97 U/L (7-40); Aspartate Aminotransferase 44 U/L (13-40); Bilirubin, Total 1.5 mg/dL (0.2-1.0); Glucose 113 mg/dL (74-106)
[2025-01-11 08:30] VITALS: BP 135/93; PULSE 65; RESP 17; TEMP 97.8; O2SAT 97
[2025-01-11] MEDS: BENAZEPRIL HCL 10 MG TAB PO SCH (10:51)
[2025-01-11] MEDS: ASPirin 81 mg TAB PO SCH (10:51)
[2025-01-11] MEDS: cefTRIAXone 1GM/50ML D5W 50 ML IV SCH (10:52)
[2025-01-11 12:25] VITALS: BP 170/92; PULSE 71; RESP 18; TEMP 98.1; O2SAT 95
[2025-01-11] MEDS: TAMSULOSIN HYDROCHLORIDE 0.4 MG CAP PO ONE (12:39)
[2025-01-11] MEDS: FINASTERIDE 5 MG TAB PO ONE (12:39)
[2025-01-11] MEDS: hydrALAZINE HCL 20 MG/ML VL IV PRN (12:40)
[2025-01-11 16:20] VITALS: BP 143/89; PULSE 87; RESP 17; TEMP 98.5; O2SAT 95
--- NOTE | 2025-01-11 17:34 | DVHDS2 ---
Discharge Summary Date of Admission Jan 10, 2025 at 14:54 Date of Discharge: Jan 11, 2025 Labs/Diagnostic Data: Laboratory Results Test 01/11/25 07:23 01/10/25 09:28 White Blood Count 8.7 10^3/uL (4.4-10.8) Red Blood Count 5.03 10^6/uL (4.5-5.90) Hemoglobin 15.5 g/dL (13.5-17.5) Hematocrit 45.8 % (41.0-53.0) Mean Corpuscular Volume 91.2 fL (80.0-100.0) Mean Corpuscular Hemoglobin 30.8 pg (28.0-32.0) Mean Corpuscular Hemoglobin Concent 33.7 g/dL (32.0-36.0) Red Cell Distribution Width 13.9 % (11.8-14.3) Platelet Count 212 10^3/uL (140-450) Mean Platelet Volume 8.4 fL (6.9-10.8) Neutrophils (%) (Auto) 58.7 % (37.0-80.0) Lymphocytes (%) (Auto) 28.1 % (10.0-50.0) Monocytes (%) (Auto) 9.8 % (0.0-12.0) Eosinophils (%) (Auto) 2.6 % (0.0-7.0) Basophils (%) (Auto) 0.8 % (0.0-2.0) Neutrophils # (Auto) 5.1 10 ^3/uL (1.6-8.6) Lymphocytes # (Auto) 2.5 10 ^3/uL (0.4-5.4) Monocytes # (Auto) 0.9 10 ^3/uL (0-1.3) Eosinophils # (Auto) 0.2 10 ^3/uL (0-0.8) Basophils # (Auto) 0.1 10 ^3/uL (0-0.2) Nucleated Red Blood Cells 0.1 % Sodium Level 141 mmol/L (136-145) Potassium Level 4.5 mmol/L (3.5-5.1) Chloride Level 106 mmol/L (98-107) Carbon Dioxide Level 27 mmol/L (20-31) Anion Gap 8 (5-15) Blood Urea Nitrogen 14 mg/dL (9-23) Creatinine 1.10 mg/dL (0.700-1.30) Glomerular Filtration Rate Calc 77 mL/min (>90) BUN/Creatinine Ratio 12.7 (10.0-20.0) Serum Glucose 113 mg/dL (74-106) Calcium Level 10.1 mg/dL (8.7-10.4) Total Bilirubin 1.5 mg/dL (0.2-1.0) Aspartate Amino Transferase (AST) 44 U/L (13-40) Alanine Aminotransferase (ALT) 97 U/L (7-40) Alkaline Phosphatase 73 U/L (46-116) Total Protein 7.1 g/dL (5.7-8.2) Albumin 4.6 g/dL (3.2-4.8) Urine Color Dark-yellow (Yellow) Urine Clarity Clear (Clear) Urine pH 6.0 (5.0-9.0) Urine Specific [place] 1.010 (1.001-1.035) Urine Protein Negative (Negative) Urine Ketones Negative (Negative) Urine Blood Negative /uL (Negative) Urine Nitrite 1+ (Negative) Urine Bilirubin 1+ (Negative) Urine Urobilinogen 2 mg/dL (Negative) Urine Leukocyte Esterase Negative /uL (Negative) Urine RBC <1 /hpf (0 - 3) Urine Microscopic WBC < 1 /HPF (0-3) Urine Squamous Epithelial Cells Few /hpf (<5) Urine Bacteria None seen /hpf (None Seen) Urine Glucose Normal mg/dL (Normal) Other Laboratory Tests 01/11/25 07:23 Brief Hx & Hospital Course: The patient is a 59-year-old male with past medical history of UTIs, hypertension, and appendicitis who presented to [facility] ED with complaint of abdominal pain for the past 4 days. Patient reports he has been experiencing diffuse abdominal pain, radiating to bilateral flank, decreased urine output, nausea, getting worse that prompted this visit. Patient was seen and evaluated in the ED, laboratory data shows WBC 8.8, platelets 236, sodium 139, potassium 4.5, BUN 14, creatinine 1.17, glucose 120, calcium 10.7, urinalysis positive for urinary tract infection, blood pressure 134/80, heart rate 86, temperature 98.6 F, O2 saturation 98% on room air. Abdomen/pelvis CT revealing hepatomegaly with diffuse hepatic steatosis, distal colon diverticulosis, no acute process in the abdomen and pelvis. Patient was started on IV antibiotic regimen Rocephin, please see medication orders section in the computer. On my assessment, patient denied chest pain, no headache, no dizziness, no shortness of breath, no nausea, no vomiting, no fever, no chills. Patient was admitted for further evaluation and medical management. Transaminitis from hepatic steatosis UTI ruled out Condition at Discharge: Good Final Diagnosis/Problems List diverticulosis Hepatic steatosis UTI ruled out Discharge Disposition: Home Discharge Instruct/Medications Diet: Regular Activity: No Restrictions, As Tolerated Follow Up/Referral: PCP in 7 days Discharge Statement: "Patient was advised to return to the ER or call 911 if any headaches, dizziness, shortness of breath, chest pain, abdominal pain, bleeding, fevers, or worsening of medical condition. Patient was counseled about treatment plan, medications, possible side effects, patientverbalized understanding. All questions were answered to the best of my ability. This discharge took greater then 30 minutes in planning, reviewing documentation, counseling the patient, and discussing with other team members." ASSESSMENT ASSESSMENT Assessment diverticulosis Date of Service: Jan 11, 2025 Billing Provider: JOSE ESPINOSA MD Common Visit Codes: 78106-XBF/OBS DISCH DAY >30min JOSE ESPINOSA MD Jan 11, 2025 17:34
[2025-01-11] MEDS ORDERED: TAMSULOSIN HYDROCHLORIDE 0.4 MG CAP PO SCH (22:00)
[2025-01-12] MEDS ORDERED: FINASTERIDE 5 MG TAB PO SCH (10:00)
== END 2025-01-11 18:12 | disposition home or self-care (01) | DRG 392 ==
LOC: ER 09:14 → OVERFLOW 14:54 → WEST WING 01-11 05:10
PROVIDERS: ADMIT Hospitalist; ATTEND Hospitalist
DX: A09 Infectious gastroenteritis and colitis, unspecified (principal); I10 Essential (primary) hypertension; F17.210 Nicotine dependence, cigarettes, uncomplicated; K57.30 Diverticulosis of large intestine without perforation or abscess without bleeding; K76.0 Fatty (change of) liver, not elsewhere classified; R16.0 Hepatomegaly, not elsewhere classified; Z79.82 Long term (current) use of aspirin; Z79.899 Other long term (current) drug therapy; Z90.49 Acquired absence of other specified parts of digestive tract; Z87.440 Personal history of urinary (tract) infections
CPT/HCPCS: 36415; 74176; 80048; 80053; 81001; 85025; 87086; G0378